=== PATIENT | male | born 1955 | race Asian ===

== ENCOUNTER 2018-11-24 06:16 | Inpatient (IN) | payer MEDICARE, MEDICAID ==
[~2018-11-24] VITALS: Ht 170.2 cm; Wt 66.2 kg
[~2018-11-24 06:16] MED LIST: *INS REG3 IJ; ALBU1.25 NEB; AMLO10TA4 PO; ENAL20TA PO; INSU3INS6 SUBCUT; IPRA0.2S49 IH; OMEP20CA10 PO; ONDA4TAB5 PO
[2018-11-24 07:17] LABS: BASOPHILS # (AUTO) 0.1 /CMM (0.0-0.2); BASOPHILS % (AUTO) 1.1 % (0.0-2.0); EOSINOPHILS % (AUTO) 2.1 % (0.0-6.0); HEMATOCRIT 23 % (39-51); HEMOGLOBIN 7.7 g/dL (13.5-17.5); LYMPHOCYTES # (AUTO) 0.9 /CMM (0.8-4.8); LYMPHOCYTES % (AUTO) 9.9 % (20.0-44.0); MEAN CORPUSCULAR HGB CONC 34 g/dl (31.0-36.0); MEAN CORPUSCULAR VOLUME 100 fL (80-96); MONOCYTES # (AUTO) 0.6 /CMM (0.1-1.30); MONOCYTES % (AUTO) 6.3 % (2.0-12.0); NEUTROPHILS # (AUTO) 7.6 /CMM (1.8-8.9); NEUTROPHILS % (AUTO) 80.6 % (43.0-81.0); PLATELET COUNT (AUTO) 302 /CMM (150-450); RED BLOOD CELL COUNT(AUTO) 2.26 MIL/uL (4.5-6.0); WHITE BLOOD COUNT (AUTO) 9.5 K/uL (4.3-11.0)
[2018-11-24 07:29] LABS: ALANINE AMINOTRANSFERASE 17 U/L (12-78); ALBUMIN 3.3 g/dL (3.4-5.0); ALKALINE PHOSPHATASE 71 U/L (46-116); ASPARTATE AMINOTRANSFERASE 22 U/L (15-37); BILIRUBIN,DIRECT 0.1 mg/dL (0.0-0.2); BILIRUBIN,TOTAL 0.2 mg/dL (0.2-1.0); CARBON DIOXIDE 31 mmol/L (21-32); CHLORIDE 97 mmol/L (98-107); GLUCOSE 196 mg/dL (74-106); POTASSIUM 3.1 mmol/L (3.5-5.1); SODIUM SERUM 138 mmol/L (136-145); TOTAL PROTEIN, SERUM 7.6 g/dL (6.4-8.2); UREA NITROGEN, BLOOD 39 mg/dL (7-18)
[2018-11-24 07:32] LABS: CREATININE 8.7 mg/dL (0.6-1.3)
[2018-11-24 12:00] VITALS: BP 160/87
[2018-11-24] MEDS ORDERED: EPOETIN ALFA (10,000 UNIT) 10,000 UNIT/ML VIAL IV ONE (12:00)
[2018-11-24] MEDS ORDERED: Z GUARD REMEDY 2 OZ OINT TP PRN (12:30)
[2018-11-24] MEDS ORDERED: ZOLPIDEM TARTRATE 5 MG TABLET PO PRN (12:30)
[2018-11-24] MEDS ORDERED: HYDROCODONE/APAP 5/325MG 1 EACH TABLET PO PRN (12:30)
[2018-11-24] MEDS ORDERED: DEXTROSE 50%-WATER 50 ML DISP.SYRIN IV PRN (12:30)
[2018-11-24] MEDS ORDERED: ONDANSETRON HCL/PF 4 MG/2 ML VIAL IVP PRN (12:30)
[2018-11-24] MEDS ORDERED: MAGNESIUM HYDROXIDE 30 ML UDC PO PRN (12:30)
[2018-11-24] MEDS ORDERED: INSULIN REGULAR, HUMAN 100 UNIT/ML 3 ML VIAL SQ PRN (12:30)
[2018-11-24] MEDS ORDERED: hydrALAZINE HCL 25 MG TABLET PO PRN (12:30)
[2018-11-24] MEDS ORDERED: *INSULIN REGULAR(HUMULIN R)HUM 100 UNIT/ML VIAL SQ PRN (12:30)
[2018-11-24] MEDS ORDERED: ACETAMINOPHEN 325 MG TABLET PO PRN (12:30)
[2018-11-24] MEDS ORDERED: MAG HYDROX/AL HYDROX/SIMETH 30 ML UDC PO PRN (12:30)
[2018-11-24] MEDS: BLOOD SUGAR DIAGNOSTIC 1 EACH STRIP VI SCH ×3 (12:30→21:25)
[2018-11-24] MEDS: ENALAPRIL MALEATE (10 MG) 10 MG TABLET PO SCH (13:00)
[2018-11-24] MEDS: ALBUTEROL HALF STRENGTH 1.25 MG/3 ML VIAL.NEB NEB SCH ×2 (13:30→19:18)
[2018-11-24 16:00] VITALS: BP 158/55
[2018-11-24 20:00] VITALS: BP 134/70
[2018-11-24] MEDS ORDERED: INSULIN GLARGINE, 100 UNIT/ML CARTRIDGE SQ SCH (22:00)
[2018-11-25 04:30] VITALS: BP 152/70
[2018-11-25 07:06] LABS: BASOPHILS # (AUTO) 0.1 /CMM (0.0-0.2); BASOPHILS % (AUTO) 0.8 % (0.0-2.0); EOSINOPHILS % (AUTO) 2.4 % (0.0-6.0); HEMATOCRIT 23 % (39-51); HEMOGLOBIN 7.9 g/dL (13.5-17.5); LYMPHOCYTES # (AUTO) 0.8 /CMM (0.8-4.8); MEAN CORPUSCULAR HGB CONC 34 g/dl (31.0-36.0); MEAN CORPUSCULAR VOLUME 100 fL (80-96); MONOCYTES # (AUTO) 0.4 /CMM (0.1-1.30); MONOCYTES % (AUTO) 4.8 % (2.0-12.0); NEUTROPHILS # (AUTO) 6.6 /CMM (1.8-8.9); PLATELET COUNT (AUTO) 295 /CMM (150-450); RED BLOOD CELL COUNT(AUTO) 2.33 MIL/uL (4.5-6.0)
[2018-11-25] MEDS: BLOOD SUGAR DIAGNOSTIC 1 EACH STRIP VI SCH (07:28)
[2018-11-25] MEDS: ALBUTEROL HALF STRENGTH 1.25 MG/3 ML VIAL.NEB NEB SCH (07:35)
[2018-11-25 07:38] LABS: THYROID STIMULATING HORMONE 154.683 uIU/mL (0.358-3.74)
[2018-11-25 07:56] LABS: CALCIUM, SERUM 7.2 mg/dL (8.5-10.1); CREATININE 6.5 mg/dL (0.6-1.3); MAGNESIUM 2.2 mg/dL (1.8-2.4); POTASSIUM 4.1 mmol/L (3.5-5.1)
[2018-11-25] MEDS ORDERED: AMLODIPINE BESYLATE 5 MG TABLET PO SCH (09:00)
[2018-11-25 10:13] VITALS: BP 165/79
[2018-11-25] MEDS: ENALAPRIL MALEATE (10 MG) 10 MG TABLET PO SCH (10:13)
== END 2018-11-25 12:45 | disposition home or self-care (01) | DRG 682 ==
LOC: ER 06:25 → TELE 10:24 → MED 11-25 09:10
PROVIDERS: ADMIT Internal Medicine; ATTEND Internal Medicine
DX: I12.0 Hypertensive chronic kidney disease with stage 5 chronic kidney disease or end stage renal disease (principal); N18.6 End stage renal disease; J98.11 Atelectasis; E11.22 Type 2 diabetes mellitus with diabetic chronic kidney disease; R13.10 Dysphagia, unspecified; D63.8 Anemia in other chronic diseases classified elsewhere; E78.5 Hyperlipidemia, unspecified; I25.10 Atherosclerotic heart disease of native coronary artery without angina pectoris; Z85.21 Personal history of malignant neoplasm of larynx; Z93.0 Tracheostomy status; Z93.1 Gastrostomy status; Z79.51 Long term (current) use of inhaled steroids; Z79.4 Long term (current) use of insulin; Z79.899 Other long term (current) drug therapy; D53.9 Nutritional anemia, unspecified; Z59.0 Homelessness; Z99.2 Dependence on renal dialysis; Z91.14 Patient's other noncompliance with medication regimen; Z83.438 Family history of other disorder of lipoprotein metabolism and other lipidemia
CPT/HCPCS: 36415; 71045-TC; 80048-TC; 80076-TC; 82962-TC; 83540-TC; 83735-TC; 84100-TC; 84443-TC; 84484-TC; 85025-TC; 85730-TC; 86706; 87081-TC; 87340; 90935-TC; 93307-TC; A6402; G0378; J0885; J1815

== ENCOUNTER 2018-12-07 15:48 | Inpatient (IN) | payer MEDICARE, MEDICAID ==
[~2018-12-07] VITALS: Ht 170.2 cm; Wt 66.2 kg
[~2018-12-07 15:48] MED LIST changes: -OMEP20CA10 PO; +OMEP20CA11 PO
--- NOTE | 2018-12-07 16:00 | NUR ---
SELF PRESENTS TO ED C/O L FOOT PAIN/CELLULITIS X 2 DAYS. PATIENT A/OX2-3, BREATHING EVEN AND UNLABORED, NO SOB NOTED, VSS. ATTACHED TO THE MONITOR. PENDING MD DAUGHERTY.
--- NOTE | 2018-12-07 16:06 | NUR ---
SEEN BY DR. FITZGERALD, INSTRUCTED TO CALL WOUND CLINIC FOR AN CLOTH WASHER OPERATOR MD FOR CONSULT D/T TRAY. FEET WOUND. PATIENT PLACED IN BED. NO DISTRESS NOTED.
[2018-12-07 16:24] LABS: BASOPHILS # (AUTO) 0.1 /CMM (0.0-0.2); BASOPHILS % (AUTO) 0.8 % (0.0-2.0); EOSINOPHILS % (AUTO) 0.8 % (0.0-6.0); HEMATOCRIT 26 % (39-51); HEMOGLOBIN 8.8 g/dL (13.5-17.5); LYMPHOCYTES # (AUTO) 0.8 /CMM (0.8-4.8); LYMPHOCYTES % (AUTO) 7.1 % (20.0-44.0); MEAN CORPUSCULAR HGB CONC 34 g/dl (31.0-36.0); MEAN CORPUSCULAR VOLUME 101 fL (80-96); MONOCYTES # (AUTO) 0.6 /CMM (0.1-1.30); MONOCYTES % (AUTO) 4.9 % (2.0-12.0); NEUTROPHILS # (AUTO) 9.8 /CMM (1.8-8.9); NEUTROPHILS % (AUTO) 86.4 % (43.0-81.0); PLATELET COUNT (AUTO) 403 /CMM (150-450); RED BLOOD CELL COUNT(AUTO) 2.58 MIL/uL (4.5-6.0); WHITE BLOOD COUNT (AUTO) 11.4 K/uL (4.3-11.0)
[2018-12-07] MEDS ORDERED: PIPERACILLIN /TAZOBACTAM 3.375 G in IV D5W 50 ML IV ONE (16:30)
[2018-12-07] MEDS ORDERED: VANCOMYCIN 1 GM in IV D5W 250 ML IV ONE (16:30)
[2018-12-07 16:34] LABS: CALCIUM, SERUM 7.5 mg/dL (8.5-10.1); CARBON DIOXIDE 34 mmol/L (21-32); CHLORIDE 93 mmol/L (98-107); GLUCOSE 213 mg/dL (74-106); POTASSIUM 3.3 mmol/L (3.5-5.1); SODIUM SERUM 135 mmol/L (136-145); UREA NITROGEN, BLOOD 31 mg/dL (7-18)
[2018-12-07 16:36] LABS: CREATININE 7.9 mg/dL (0.6-1.3)
--- NOTE | 2018-12-07 16:36 | NUR ---
CREAT=7.9
--- NOTE | 2018-12-07 16:42 | NUR ---
CALLED [facility] CREDIT HISTORIAN TALIA PAGEKylie
--- NOTE | 2018-12-07 16:43 | NUR ---
ADKED NURSING SUP FOR MEDSURG BED
[2018-12-07 16:48] LABS: ALANINE AMINOTRANSFERASE 15 U/L (12-78); ALBUMIN 3.1 g/dL (3.4-5.0); ALKALINE PHOSPHATASE 91 U/L (46-116); ASPARTATE AMINOTRANSFERASE 19 U/L (15-37); BILIRUBIN,DIRECT 0.1 mg/dL (0.0-0.2); BILIRUBIN,TOTAL 0.3 mg/dL (0.2-1.0)
--- NOTE | 2018-12-07 17:01 | NUR ---
304-1 NIKKIE MELGAR, INFECTED ULCER
--- NOTE | 2018-12-07 17:06 | NUR ---
REPORT TO JULIA CARTAGENA. AWAITING TRANSFER TO FLOOR.
[2018-12-07] MEDS ORDERED: MAGNESIUM HYDROXIDE 30 ML UDC PO PRN (17:30)
[2018-12-07] MEDS ORDERED: MORPHINE SULFATE INJ 2 MG/ML DISP.SYRIN IV PRN (17:30)
[2018-12-07] MEDS ORDERED: ONDANSETRON HCL/PF 4 MG/2 ML VIAL IVP PRN (17:30)
[2018-12-07] MEDS ORDERED: ZOLPIDEM TARTRATE 5 MG TABLET PO PRN (17:30)
[2018-12-07] MEDS ORDERED: HYDROCODONE/APAP 5/325MG 1 EACH TABLET PO PRN (17:30)
[2018-12-07] MEDS ORDERED: Z GUARD REMEDY 2 OZ OINT TP PRN (17:30)
[2018-12-07] MEDS ORDERED: MAG HYDROX/AL HYDROX/SIMETH 30 ML UDC PO PRN (17:30)
[2018-12-07] MEDS ORDERED: ACETAMINOPHEN 325 MG TABLET PO PRN (17:30)
--- NOTE | 2018-12-07 18:06 | NUR ---
PATIENT TRANSFERRED TO MS FLOOR 304-1, PATIENT IN STABLE CONDITION. VSS. PATIENT A/OX3, NO DISTRESS NOTED.
[2018-12-07] MEDS ORDERED: FEE PK DOSING 1 MIN EA MC ONE (18:10)
--- NOTE | 2018-12-07 19:00 | NUR ---
BULB FILLER OPENING NOTES Received patient A/O x3, nonverbal, awake on semi-Crouch's on bed. On RA, no SOB/respiratory distress noted. No complaints of pain/discomfort made. Photos re-taken and documented. Wound care done. Call light within easy reach. Will continue to monitor accordingly.
--- NOTE | 2018-12-07 19:05 | NUR ---
EDITORIAL INTERN NOTES On tele monitor with SR noted.
--- NOTE | 2018-12-07 19:50 | NUR ---
LIFE EDUCATOR NOTES Received call from labs critical lab crea 3.5. Relayed to RUTHIE Pyle. Patient remained stable, VS WNL.
[2018-12-07 20:00] VITALS: BP 165/69
[2018-12-07 20:37] VITALS: BP 165/69
[2018-12-07 23:43] VITALS: BP 134/73
[2018-12-08] VITALS: BP 134/73
[2018-12-08] MEDS: PIPERACILLIN /TAZOBACTAM 2.25 G in IV D5W 50 ML IV SCH ×3 (00:40→17:07)
[2018-12-08 04:00] VITALS: BP 143/70
[2018-12-08 04:51] VITALS: BP 160/71
--- NOTE | 2018-12-08 06:50 | NUR ---
CHEMIC MANGLER CLOSING NOTES Patient asleep, easily awaken, on semi-Rcouch's position on bed. On RA, no SOB/respiratory distress noted. No complaints of pain or discomfort noted. All due meds given, no ASE noted. All nursing needs attended. Call light within easy reach. Endorsed to the next shift. Addendum: 12/08/18 at 0652 by ANGELINA NUGENT RN Patient on tele monitor with NSR noted.
[2018-12-08 07:27] LABS: BASOPHILS # (AUTO) 0.1 /CMM (0.0-0.2); BASOPHILS % (AUTO) 0.9 % (0.0-2.0); EOSINOPHILS % (AUTO) 1.3 % (0.0-6.0); HEMATOCRIT 25 % (39-51); HEMOGLOBIN 8.1 g/dL (13.5-17.5); LYMPHOCYTES % (AUTO) 8.4 % (20.0-44.0); MEAN CORPUSCULAR HGB CONC 33 g/dl (31.0-36.0); MEAN CORPUSCULAR VOLUME 101 fL (80-96); MONOCYTES # (AUTO) 0.5 /CMM (0.1-1.30); MONOCYTES % (AUTO) 4.3 % (2.0-12.0); NEUTROPHILS # (AUTO) 9.8 /CMM (1.8-8.9); NEUTROPHILS % (AUTO) 85.1 % (43.0-81.0); PLATELET COUNT (AUTO) 384 /CMM (150-450); RED BLOOD CELL COUNT(AUTO) 2.44 MIL/uL (4.5-6.0); WHITE BLOOD COUNT (AUTO) 11.6 K/uL (4.3-11.0)
[2018-12-08 07:41] LABS: CALCIUM, SERUM 6.7 mg/dL (8.5-10.1); MAGNESIUM 1.9 mg/dL (1.8-2.4); PHOSPHORUS 3.9 mg/dL (2.5-4.9); POTASSIUM 3.9 mmol/L (3.5-5.1)
[2018-12-08 07:42] LABS: CREATININE 8.7 mg/dL (0.6-1.3)
[2018-12-08 08:00] VITALS: BP 143/69
--- NOTE | 2018-12-08 08:00 | NUR ---
RN NOTES PATIENT IN BED RESTING NO SOB OR ACUTE DISTRESS NOTED. PATIENT WITH TRACH STOMA OPEN TO AIR, PATIENT DOES NOT WANT IT COVERED. PATIENT ALSO WITH G-TUBE STOMA. PERIPHERAL IV INTACT PATENT. NOTED WITH CREAT. 8.7 MD AWARE WAITING FOR NEPHROLOGY AND HD. PATIENT WITH BILATERAL FEET WOUNDS WAITING FOR PODIATRY CONSULT. PATIENT ALERT, ORIENTED X3. WILL CONTINUE TO MONITOR.
--- NOTE | 2018-12-08 10:09 | NUR ---
WOUND CARE CONSULT: PT PRESENTS WITH BILATERAL FOOT WOUNDS, PRESENT ON ADMISSION. DR ESCAMILLA EXAMINING PT. DEFER TO DPM FOR LOWER EXTREMITIES. RECOMMENDATIONS MADE FOR SKIN PROTECTION. DISCUSSED WITH NURSING STAFF. WILL SEE PRN. PT IS CONTINENT AND ABLE TO ASSIST WITH TURNING/REPOSITIONING IN BED. Addendum: 12/08/18 at 1011 by BLANCHE MAK WNDNU Amended: Links added.
--- NOTE | 2018-12-08 14:49 | NUR ---
Social service consult requested by LONI Briggs for homelessness. Pt. is a 63 year old German male who was admitted to [facility] for infected ulcer.SW met with pt. bedside. Pt. was laying in bed. Pt. appeared lethargic. Pt. is cooperative and polite with SW during the assessment. Pt. is alert and oriented x 3. Pt. has a history of tracheostomy, dysphagia s/p G tube, Hx laryngeal CA. Pt. is on dialysis and has been non complaint with his dialysis. Pt. was residing at [facility] in the past, however, left the facility a few weeks ago and has been living in his car. Pt. receives $700 in SSI per month. Pt. is willing to go to a SNF placement. property site manager Staci Reyes is aware of pt's disposition and will be looking for a SNF.
--- NOTE | 2018-12-08 15:00 | NUR ---
MS RN NOTES PER DR. MELISSA CARRILLO TOMORROW AWARE OF CREAT. OF 8.7.
[2018-12-08 16:00] VITALS: BP 178/81
--- NOTE | 2018-12-08 18:23 | NUR ---
MS RN NOTES PATIENT IN BED RESTING NO SOB OR ACUTE DISTRESS NOTED. PATIENT ALERT, ORIENTED X3. ALL DUE MEDICATIONS ADMINISTERED. ALL NEEDS MET. NO ACUTE CHANGES NOTED DURING SHIFT. PERIPHERAL IV INTACT PAPNET. WILL ENDORSE TO PM SHIFT BARBIE.
--- NOTE | 2018-12-08 19:30 | NUR ---
RN NOTES RECEIVED PT. AWAKE ON BED, A/OX3, NON-VERBAL, STOMA (S/P TRACH), DENIES PAIN, NO SOB, CALL LIGHT WITHIN REACH, SIDERAILSUPX2, CONTINUE TO MONITOR
[2018-12-08 20:09] VITALS: BP 147/83
[2018-12-09] MEDS: PIPERACILLIN /TAZOBACTAM 2.25 G in IV D5W 50 ML IV SCH ×3 (00:27→17:15)
--- NOTE | 2018-12-09 01:39 | NUR ---
RN NOTES READ PATIENT H&P , PATIENT IS INSULIN DEPENDENT, GOT AN ACCU CHECK ORDER FROM ROSHAN MARTINEZ, ORDER NOTED AND CARRIED OUT
[2018-12-09] MEDS ORDERED: DEXTROSE 50%-WATER 50 ML DISP.SYRIN IV PRN (02:00)
--- NOTE | 2018-12-09 06:35 | NUR ---
RN NOTES AWAKE, DENIES PAIN, NO SOB, MORNING CARE RENDERED, CALL LIGHT WITHIN REACH, SIDERAILSUPX2, PT. NEEDS ATTENDED
[2018-12-09] MEDS: BLOOD SUGAR DIAGNOSTIC 1 EACH STRIP IN SCH ×4 (06:36→21:29)
[2018-12-09 07:37] LABS: BASOPHILS # (AUTO) 0.1 /CMM (0.0-0.2); BASOPHILS % (AUTO) 0.5 % (0.0-2.0); EOSINOPHILS % (AUTO) 1.9 % (0.0-6.0); HEMATOCRIT 23 % (39-51); HEMOGLOBIN 7.8 g/dL (13.5-17.5); LYMPHOCYTES # (AUTO) 0.8 /CMM (0.8-4.8); LYMPHOCYTES % (AUTO) 8.4 % (20.0-44.0); MEAN CORPUSCULAR HGB CONC 35 g/dl (31.0-36.0); MEAN CORPUSCULAR VOLUME 100 fL (80-96); MONOCYTES # (AUTO) 0.5 /CMM (0.1-1.30); MONOCYTES % (AUTO) 5.4 % (2.0-12.0); NEUTROPHILS # (AUTO) 8.3 /CMM (1.8-8.9); NEUTROPHILS % (AUTO) 83.8 % (43.0-81.0); PLATELET COUNT (AUTO) 360 /CMM (150-450); RED BLOOD CELL COUNT(AUTO) 2.24 MIL/uL (4.5-6.0); WHITE BLOOD COUNT (AUTO) 9.9 K/uL (4.3-11.0)
[2018-12-09 07:57] LABS: CALCIUM, SERUM 6.7 mg/dL (8.5-10.1); MAGNESIUM 1.9 mg/dL (1.8-2.4); PHOSPHORUS 4.1 mg/dL (2.5-4.9); POTASSIUM 3.5 mmol/L (3.5-5.1)
[2018-12-09 07:59] LABS: CREATININE 9.4 mg/dL (0.6-1.3)
[2018-12-09 08:00] VITALS: BP 163/73
--- NOTE | 2018-12-09 08:00 | NUR ---
MS RN NOTES: RECEIVED RESIDENT ASLEEP IN BED, AROUSABLE. ALERT AND ORIENTED X4. NO SIGNS OF ACUTE DISTRESS AT THIS TIME. TRACH STOMA AND GASTROSTOMY STOMA SITE OPEN, PATIENT REFUSED TO HAVE IT COVERED. RIGHT AC GAUGE #20 INTACT AND PATENT. RESIDENT NON VERBAL BUT ABLE TO MAKE NEEDS KNOWN THROUGH WRITTEN COMMUNICATION, GESTURES AND BODY LANGUAGE. CALL LIGHT WITHIN REACH. NEEDS ATTENDED.
[2018-12-09] MEDS: INSULIN REGULAR, HUMAN 100 UNIT/ML 3 ML VIAL SQ PRN ×2 (11:37→21:33)
[2018-12-09 16:00] VITALS: BP 155/81
--- NOTE | 2018-12-09 18:50 | NUR ---
MS RN NOTES: PATIENT ALERT AND ORIENTED X4. DENIES ANY C/O PAIN NOR DISCOMFORT. ALL DUE MEDS GIVEN KARELY WELL W/O ASE NOTED. RT AC #20 INTACT AND PATENT WITHOUT S/S OF COMPLICATIONS. REMAINS STABLE AT THIS TIME. CONTINENT OF B&B. CALL LIGHT WITHIN REACH. ABLE TO MAKE NEEDS KNOWN. SCHEDULED FOR HD TODAY, AWAITING FOR HD TX, ENDORSED TO ONCOMING SHIFT.
--- NOTE | 2018-12-09 19:00 | NUR ---
RN medsurg opening notes Pt is alert and oriented X3. Pt is non verbal and able to make needs known. Pt is sitting in bed comfortably. Respiration is normal. No SOB. No nausea or vomiting. Trach stoma is open and Pt refused to have it covered. IV sites on R AC #20g is intact, patent and SL. Safety precautions is maintained. Bed at low position, brakes on, side rails upX2 and call light is within reach. Instructed to call. Will continue to monitor and assist needs.
[2018-12-09 19:58] VITALS: BP 154/73
--- NOTE | 2018-12-09 21:36 | NUR ---
RN Medsunaya notes Pt is having dialysis. Dialysis nurse name Breanna.
--- NOTE | 2018-12-10 00:15 | NUR ---
OSIEL ayoubsurgiancarlo notes Dialysis done. 0 L output. Pt tolerated well. No adverse reaction. Will continue to monitor.
[2018-12-10] MEDS: VANCOMYCIN 500 MG in IV D5W 100 ML IV PRN (00:19)
[2018-12-10] MEDS: PIPERACILLIN /TAZOBACTAM 2.25 G in IV D5W 50 ML IV SCH ×3 (01:29→16:39)
--- NOTE | 2018-12-10 06:50 | NUR ---
RN medsurg closing notes Pt is alert and oriented x3. Pt is non verbal and able to make needs known. Pt is resting in bed comfortably. Respiration is normal. NO SOB. No S/S of distress noted. Routine meds given and all needs met. Pt tolerated well. VS is stable. IV sites is intact and patent. Pt refused to covered the trach stoma. Safety precautions is maintained. Bed at low position and call light is within reach. Will endorse to morning nurse.
--- NOTE | 2018-12-10 07:25 | NUR ---
MS RN OPENING NOTES RECEIVED PT IN BED, AWAKE, A/O X3. NONVERBAL, CAN RESPOND WITH NON VERBAL CUES AND GESTURES. PT DENIES ANY PAIN OR DISCOMFORT. PT DENIES ANY QUESTIONS AND CONCERNS. PT GESTURED "I DON'T KNOW" WHEN ASKED WITH HIS GOAL FOR TODAY. PIV TO RAC G20, FLUSHED WITH NS, INTACT AND OPERATIONAL. PT KEPT COMFORTABLE. CALL LIGHT AND FLUID KEPT WITHIN REACH. PT'S BED IN LOWEST, LOCKED POSITION WITH SR X2. WILL CONTINUE PLAN OF CARE.
[2018-12-10] MEDS: BLOOD SUGAR DIAGNOSTIC 1 EACH STRIP IN SCH ×4 (07:35→22:16)
[2018-12-10 07:57] VITALS: BP 141/72
[2018-12-10 08:03] LABS: CALCIUM, SERUM 7.5 mg/dL (8.5-10.1); CREATININE 6.4 mg/dL (0.6-1.3); MAGNESIUM 1.9 mg/dL (1.8-2.4); PHOSPHORUS 3.1 mg/dL (2.5-4.9); POTASSIUM 3.5 mmol/L (3.5-5.1)
[2018-12-10 08:05] LABS: BASOPHILS # (AUTO) 0.1 /CMM (0.0-0.2); BASOPHILS % (AUTO) 0.9 % (0.0-2.0); EOSINOPHILS % (AUTO) 2.9 % (0.0-6.0); HEMATOCRIT 23 % (39-51); HEMOGLOBIN 7.7 g/dL (13.5-17.5); LYMPHOCYTES # (AUTO) 0.7 /CMM (0.8-4.8); LYMPHOCYTES % (AUTO) 8.6 % (20.0-44.0); MEAN CORPUSCULAR HGB CONC 34 g/dl (31.0-36.0); MEAN CORPUSCULAR VOLUME 101 fL (80-96); MONOCYTES # (AUTO) 0.4 /CMM (0.1-1.30); MONOCYTES % (AUTO) 5.1 % (2.0-12.0); NEUTROPHILS # (AUTO) 7.2 /CMM (1.8-8.9); NEUTROPHILS % (AUTO) 82.5 % (43.0-81.0); PLATELET COUNT (AUTO) 388 /CMM (150-450); RED BLOOD CELL COUNT(AUTO) 2.26 MIL/uL (4.5-6.0); WHITE BLOOD COUNT (AUTO) 8.7 K/uL (4.3-11.0)
--- NOTE | 2018-12-10 09:19 | NUR ---
MS RN NOTES SEEN AND EVALUATED BY SK EARLIER THIS MORNING, WITH NO NEW ORDERS NOTED. PT AWARE. WILL CONTINUE TO MONITOR.
[2018-12-10] MEDS: INSULIN REGULAR, HUMAN 100 UNIT/ML 3 ML VIAL SQ PRN ×3 (11:43→22:17)
[2018-12-10 16:00] VITALS: BP 186/91
[2018-12-10] MEDS: hydrALAZINE HCL 25 MG TABLET PO PRN (17:06)
--- NOTE | 2018-12-10 18:52 | NUR ---
MS RN CLOSING NOTES PT REMAINS IN BED, AWAKE, A/O X3. NONVERBAL, MOUTHS WORDS AND HAND GESTURES. PT DENIES ANY PAIN OR DISCOMFORT. PT HAS STOMA ON THE FRONT NECK S/P TRACH; PT REFUSE TO COVER IT.PIV TO RAC G20, FLUSHED WITH NS, INTACT AND OPERATIONAL. PT KEPT COMFORTABLE. CALL LIGHT AND FLUID KEPT WITHIN REACH. PT'S BED IN LOWEST, LOCKED POSITION WITH SR X2. WILL ENDORSE TO INCOMING NIGHT NURSE.
--- NOTE | 2018-12-10 19:20 | NUR ---
RN INITIAL NOTES: RECEIVED REPORT FORM ANDREW CARTAGENA. PT IN BED, AWAKE, NON VERBAL, ABLE TO MOUTH WORDS, ABLE TO MAKE HIS NEEDS KNOWN. S/P HD TODAY 12/10 WITH NO OUTPUT JUST CLEANING. CHRISTIAN HD ACCESS COVERED WITH DRESSING C/D/I, NO ACTIVE BLEEDING NOTED. IV ACCESS PATENT AND FLUSHING WELL, ON HL. URINAL WITHIN REACH. SAFETY PRECAUTIONS FOR FALL INITIATED, CALL LIGHT IN REACH, WILL CONTINUE MONITORING PT.
[2018-12-10 20:00] VITALS: BP 147/78
--- NOTE | 2018-12-10 21:00 | NUR ---
RN NOTES: REQUESTED FOR TUNA SAND WHICH, ATE 100%
--- NOTE | 2018-12-10 22:17 | NUR ---
ACCU CHECK 190: BLOOD SUGAR 190, 3UNITS OF INSULIN GIVEN PER SLIDING SCALE
[2018-12-11] VITALS (9 sets, daily range): BP systolic 143–198; BP diastolic 75–100
[2018-12-11] MEDS: PIPERACILLIN /TAZOBACTAM 2.25 G in IV D5W 50 ML IV SCH ×3 (00:49→16:02)
[2018-12-11] MEDS: BLOOD SUGAR DIAGNOSTIC 1 EACH STRIP IN SCH ×4 (05:44→21:25)
[2018-12-11] MEDS: INSULIN REGULAR, HUMAN 100 UNIT/ML 3 ML VIAL SQ PRN ×3 (05:46→21:22)
--- NOTE | 2018-12-11 05:46 | NUR ---
accu check 140: blood sugar 140, 2units of insulin given per sliding scale, pt requesting to eat and have some juice.
--- NOTE | 2018-12-11 06:50 | NUR ---
rn closing notes: Pt in bed, awake, remains non verbal, denies any pain or discomfort at this time. IV access remains patent and flushing well, on hl. chris hd access remains covered with dressing, c/d/i. Wound dressing remains c/d/i. Pt for HD in am. VS remains stable, needs attended. Safety precautions for fall remains engaged, call light in reach, will endorse to day rn for continuity of care.
[2018-12-11 07:16] LABS: BASOPHILS # (AUTO) 0.1 /CMM (0.0-0.2); BASOPHILS % (AUTO) 0.8 % (0.0-2.0); EOSINOPHILS % (AUTO) 3.5 % (0.0-6.0); HEMATOCRIT 21 % (39-51); HEMOGLOBIN 7.1 g/dL (13.5-17.5); LYMPHOCYTES # (AUTO) 0.8 /CMM (0.8-4.8); LYMPHOCYTES % (AUTO) 10.3 % (20.0-44.0); MEAN CORPUSCULAR HGB CONC 34 g/dl (31.0-36.0); MEAN CORPUSCULAR VOLUME 101 fL (80-96); MONOCYTES # (AUTO) 0.4 /CMM (0.1-1.30); MONOCYTES % (AUTO) 4.6 % (2.0-12.0); NEUTROPHILS # (AUTO) 6.5 /CMM (1.8-8.9); NEUTROPHILS % (AUTO) 80.8 % (43.0-81.0); PLATELET COUNT (AUTO) 366 /CMM (150-450); RED BLOOD CELL COUNT(AUTO) 2.08 MIL/uL (4.5-6.0); WHITE BLOOD COUNT (AUTO) 8.1 K/uL (4.3-11.0)
--- NOTE | 2018-12-11 07:19 | NUR ---
MS/RN OPENING NOTE PATIENT IN BED IN STABLE CONDITION. A/O X 3, LUXEMBOURGISH SPEAKING. NO SIGNS OF ACUTE DISTRESS. NO COMPLAIN OF PAIN OR DISCOMFORT. ALL NEEDS ATTENDED TO. CALL LIGHT WITHIN REACH. WILL CONTINUE TO MONITOR TO ENSURE SAFETY.
[2018-12-11 07:33] LABS: MAGNESIUM 1.9 mg/dL (1.8-2.4); POTASSIUM 3.7 mmol/L (3.5-5.1)
[2018-12-11 07:35] LABS: CREATININE 7.6 mg/dL (0.6-1.3)
--- NOTE | 2018-12-11 07:53 | NUR ---
MS/RN RECEIVED CALL FROM LAB AND COURY NOTIFIED PATIENT NOTED WITH CRITICAL HIGH CREATININE OF 7.4, NOTIFIED, PATIENT HAS SCHEDULE DIALYSIS TODAY.
--- NOTE | 2018-12-11 09:12 | NUR ---
MS/RN SPOKE WITH NEO FROM PHARM AND VERIFY THE VANCO TROUGH DRAWN TODAY AT 0600 WILL BE COUNTED RANDOM VANCO TROUGH PRIOR TO DIALYSIS, SINCE PATIENT SCHEDULE FOR DIALYSIS TODAY. PER NEO NO NEED TO ORDER ANOTHER VANCO TROUGH THE 0600 VANCO TROUGH ON 12/11/18 IS RANDOM VANCO TROUGH PRIOR TO HD.
[2018-12-11] MEDS ORDERED: EPOETIN ALFA (10,000 UNIT) 10,000 UNIT/ML VIAL IV ONE (12:00)
--- NOTE | 2018-12-11 13:45 | NUR ---
MS/RN SPOKE WITH KELECHI FROM PHARM AND VERIFY WHICH VANCO IV ORDER TO GIVE THE SCHEDULE VANCO 250MG AT 1700 OR PRN ORDER POST HD VANCO 500 SINCE PATIENT IS HAVING DIALYSIS AT THE MOMENT. PER KELECHI MCQUEEN TO GIVE SCHEDULE VANCO 250MG IVPB AT 1700.
[2018-12-11] MEDS: hydrALAZINE HCL 25 MG TABLET PO PRN (15:57)
--- NOTE | 2018-12-11 16:46 | NUR ---
MS/RN PATIENT REFUSED TREATMENT TO RIGHT LATERAL FOOT, LEFT MEDIAL FOOT, AND RIGHT PLANTAR FOOT. OFFERED X 3 WITH RISKS AND BENEFITS EXPLAINED. CONTINUE TO REFUSE WITH "NO HEAD NOD GESTURE" AND WOULDN'T LET THE NURSE TOUCH THE DRESSING SITE.
[2018-12-11] MEDS ORDERED: VANCOMYCIN 1 GM in IV D5W 250 ML IV ONE (17:00)
--- NOTE | 2018-12-11 18:09 | NUR ---
MS/RN CLOSING NOTE PATIENT IN BED IN STALE CONDITION. A/O X 2-3, ANSWERS YES OR NO QUESTIONS WITH HEAD NOD. NO SIGNS OF ACUTE DISTRESS. NO COMPLAIN OF PAIN OR DISCOMFORT. S/P HYDRALAZINE 25MG PO BP NOTED 108/68. STILL CONTINUE TO REFUSE WOUND TREATMENT. ALL NEEDS ATTENDED TO AT THIS TIME. CALL LIGHT WITHIN REACH. WILL ENDORSE TO NEXT SHIFT FOR CONTINUITY OF CARE.
--- NOTE | 2018-12-11 20:00 | NUR ---
MS RN NOTES RECEIVED PATIENT AWAKE IN BED WITH NO DISTRESS NOTED. CALL LIGHT WITHIN REACH. PERIPHERAL LINE INTACT AND PATENT. CHRISTIAN AV SHUNT INTACT WITH (+) BRUIT AND THRILL. NO SWELLING, REDNESS, OR BLEEDING NOTED. BED IN LOW LOCK SETTING. ROOM FREE OF CLUTTER AND BELONGINGS KEPT NEAR BEDSIDE. WILL CONTINUE TO MONITOR.
--- NOTE | 2018-12-11 21:45 | NUR ---
RECEIVED PATIENT FROM [facility]. PATIENT AO X 2-3. ABLE TO MAKE NEEDS KNOWN. WILL CONTINUE TO MONITOR.
[2018-12-12] MEDS: PIPERACILLIN /TAZOBACTAM 2.25 G in IV D5W 50 ML IV SCH ×3 (01:13→16:17)
--- NOTE | 2018-12-12 06:00 | NUR ---
PATIENT ASLEEP, EASILY AROUSABLE. RESPIRATIONS EVEN. NO SIGNS OF PAIN NOTED. NO SYMPTOMS OF HYPER/HYPOGLYCEMIA. DUE MEDS GIVEN WITH NO ASE NOTED. NEEDS ATTENDED. KEPT CLEAN AND DRY. SAFETY PRECAUTIONS AND COMFORT MEASURES IN PLACE. WILL GIVE REPORT TO DAY SHIFT FOR CONTINUITY OF CARE.
[2018-12-12] MEDS: BLOOD SUGAR DIAGNOSTIC 1 EACH STRIP IN SCH ×4 (06:39→21:41)
[2018-12-12 06:54] LABS: BASOPHILS # (AUTO) 0.1 /CMM (0.0-0.2); BASOPHILS % (AUTO) 1.1 % (0.0-2.0); HEMATOCRIT 28 % (39-51); HEMOGLOBIN 9.8 g/dL (13.5-17.5); LYMPHOCYTES % (AUTO) 11.5 % (20.0-44.0); MEAN CORPUSCULAR HGB CONC 35 g/dl (31.0-36.0); MEAN CORPUSCULAR VOLUME 97 fL (80-96); MONOCYTES # (AUTO) 0.5 /CMM (0.1-1.30); MONOCYTES % (AUTO) 5.3 % (2.0-12.0); NEUTROPHILS # (AUTO) 6.9 /CMM (1.8-8.9); NEUTROPHILS % (AUTO) 79.1 % (43.0-81.0); PLATELET COUNT (AUTO) 344 /CMM (150-450); RED BLOOD CELL COUNT(AUTO) 2.93 MIL/uL (4.5-6.0); WHITE BLOOD COUNT (AUTO) 8.7 K/uL (4.3-11.0)
[2018-12-12 06:58] LABS: CALCIUM, SERUM 8.7 mg/dL (8.5-10.1); MAGNESIUM 1.9 mg/dL (1.8-2.4); PHOSPHORUS 3.4 mg/dL (2.5-4.9); POTASSIUM 3.9 mmol/L (3.5-5.1)
--- NOTE | 2018-12-12 07:22 | NUR ---
RN OPENING NOTE PT WAS RECEIVED IN BED AT LOWEST AND LOCKED POSITION WITH SIDE RAILS UPX2, A/O 2-3 MOUTH WORDS, BREATHING EVEN AND UNLABORED ON RA, NO CURRENT COMPLAINTS OR SIGN OF ANY DISTRESS OR PAIN AT THIS TIME, IV IS PATENT AND INTACT, NOTED TO HAVE CHRISTIAN AV SHUNT AND RECEIVED HD YESTERDAY, NOTED TO HAVE FOOT WITH S/P DEBRIDEMENT ON 12/08, AWAITING TO COLLECT STOOL, SAFETY PRECAUTIONS IN PLACE, CALL LIGHT WITHIN REACH, WILL MONITOR ACCORDINGLY
[2018-12-12 08:00] VITALS: BP 156/76
[2018-12-12] MEDS: AMLODIPINE BESYLATE 5 MG TABLET PO SCH (08:42)
[2018-12-12] MEDS: INSULIN REGULAR, HUMAN 100 UNIT/ML 3 ML VIAL SQ PRN ×3 (11:35→21:39)
--- NOTE | 2018-12-12 12:30 | NUR ---
RN NOTE WOUND CARE DONE AT THIS TIME
[2018-12-12 16:00] VITALS: BP 166/65
--- NOTE | 2018-12-12 18:38 | NUR ---
RN CLOSING NOTE PT IN BED AT LOWEST AND LOCKED POSITION WITH SIDE RAILS UPX2, A/O X2-2 BREATHING EVEN AND UNLABORED ON WITHNO CURRENT SIGNS OF ANY DISTRESS OR PAIN AT THIS TIME, IV IS PATENT AND INTACT, RESTING COMFORTABLY IN BED, SAFETY PRECAUTIONS IN PLACE, CALL LIGHT WITHIN REACH, ALL NEEDS ATTENDED TO, WILL ENDORSE TO PRESSURE TANK OPERATOR RN FOR BARBIE
--- NOTE | 2018-12-12 19:30 | NUR ---
RECEIVED PATIENT IN BED AWAKE. AO X 2-3, ABLE TO MAKE NEEDS KNOWN; MOUTHS WORDS. NO ACUTE DISTRESS NOTED. DENIES ANY PAIN AT THIS TIME. IV SITE PATENT, INTACT; FLUSHED. BILATERAL FOOT DRESSINGS INTACT. SAFETY REMINDERS GIVEN. ON LOW BED WITH BILATERAL UPPER SIDE RAILS UP. CALL [place] WITHIN EASY REACH. WILL CONTINUE TO MONITOR.
[2018-12-12 20:00] VITALS: BP 165/80
[2018-12-12 21:00] VITALS: BP 149/73
[2018-12-13] MEDS: PIPERACILLIN /TAZOBACTAM 2.25 G in IV D5W 50 ML IV SCH ×3 (01:47→17:28)
--- NOTE | 2018-12-13 06:00 | NUR ---
PATIENT ASLEEP, EASILY AROUSABLE. RESPIRATIONS EVEN. NO SIGNS OF PAIN NOTED. NO SYMPTOMS OF HYPER/HYPOGLYCEMIA. DUE MED GIVEN WITH NO ASE NOTED. NEEDS ATTENDED. KEPT CLEAN AND DRY. SAFETY PRECAUTIONS AND COMFORT MEASURES IN PLACE. WILL GIVE REPORT TO DAY SHIFT FOR CONTINUITY OF CARE.
[2018-12-13] MEDS: BLOOD SUGAR DIAGNOSTIC 1 EACH STRIP IN SCH ×4 (06:41→23:24)
[2018-12-13] MEDS: INSULIN REGULAR, HUMAN 100 UNIT/ML 3 ML VIAL SQ PRN ×4 (06:43→23:28)
[2018-12-13 07:06] LABS: CALCIUM, SERUM 8.3 mg/dL (8.5-10.1); POTASSIUM 4.3 mmol/L (3.5-5.1)
[2018-12-13 07:32] LABS: CREATININE 7.7 mg/dL (0.6-1.3)
[2018-12-13 08:00] VITALS: BP 157/83
--- NOTE | 2018-12-13 08:00 | NUR ---
MS RN NOTES PATIENT ALERT, ORIENTED X3. PERIPHERAL IV INTACT PATENT. BED IN LOW LOCKED POSITION. CALL LIGHT WITHIN REACH. WAITING FOR HD TODAY. WILL CONTINUE TO MONITOR.
[2018-12-13] MEDS: AMLODIPINE BESYLATE 5 MG TABLET PO SCH (09:06)
[2018-12-13] MEDS ORDERED: INSU100V28 SQ (09:55)
[2018-12-13] MEDS ORDERED: AMLO5TAB9 PO (09:55)
[2018-12-13] MEDS ORDERED: HYDR-4076 PO (09:55)
[2018-12-13] MEDS ORDERED: CLIN300C11 PO (09:55)
--- NOTE | 2018-12-13 15:00 | NUR ---
MS RN NOTES PATIENT WITH BED AT [facility] AWAITING FOR HD BEFORE TRANSFER.
[2018-12-13 16:00] VITALS: BP 172/90
--- NOTE | 2018-12-13 19:19 | NUR ---
MS RN NOTES PATIENT IN BED ALERT, ORIENTED X3. CURRENTLY ON HD. TOLERATING WELL. PATIENT TO BE DISCHARGED AFTER HD. NO ACUTE CHANGED NOTED DURING SHIFT. PATIENT AWARE OF DISCHARGE. ENDORSED CARE TO PM SHIFT.
--- NOTE | 2018-12-13 19:30 | NUR ---
MS/RN OPENING NOTES PT RECEIVED AWAKE, RESTING COMFORTABLY IN BED. A/OX3. NON VERBAL BUT ABLE TO MOUTH WORDS, ANSWER YES/NO QUESTIONS AND WRITE HIS NEEDS DOWN ON PAPER. ON ROOM AIR, BREATHING EVEN AND UNLABORED. IV TO RIGHT WRIST PATENT AND INTACT. CHRISTIAN AV SHUNT, HD ONGOING AT THIS TIME. PLAN TO DC TONIGHT TO [facility] AFTER HD. AMBULANCE ON WILL CALL. PT AWARE AND AGREES WITH PLAN OF CARE. NO NEEDS EXPRESSED AT THIS TIME. BED IN LOW/LOCKED POSITION WITH CALL LIGHT IN REACH, HOB ELEVATED, BILAT. UPPER SIDE RAILS IN PLACE. WILL CONTINUE TO MONITOR
[2018-12-13 19:50] VITALS: BP 167/85
[2018-12-13 20:00] VITALS: BP 167/85
--- NOTE | 2018-12-13 20:40 | NUR ---
MS/RN NOTES CALLED [facility]. SPOKE TO BAL NURSING INDUSTRIAL ENGINEERING TECHNICIAN TO GIVE REPORT. MADE AWARE THAT PT IS ONGOING HD AND AMBULANCE IS ON WILL CALL. WILL KEEP HER UPDATED.
--- NOTE | 2018-12-13 21:26 | NUR ---
MS/RN NOTES HD ENDED, 1200 CC OUT. PER HD NURSE, BP 103/56, HR 82
--- NOTE | 2018-12-13 21:30 | NUR ---
MS/RN NOTES AMBULANCE CALLED TO [facility] PT. ETA 1 HOUR. BAL MADE AWARE
[2018-12-13 21:45] VITALS: BP 152/75
--- NOTE | 2018-12-13 22:02 | NUR ---
MS/RN NOTES DISCHARGE PAPERWORK PRINTED AND REVIEWED WITH PT. PT REFUSING TO SIGN DC PAPERWORK AND DOES NOT WANT TO BE DISCHARGED. WANTS TO STAY THE NIGHT AND LEAVE TOMORROW. NOTIFIED TOBY MARTINEZ NP THAT PT IS NOW REFUSING TO GO TO SNF. HE HAS HIS CAR IN [facility] [address] [place] AND WANTS TO DRIVE HIMSELF TO THE SNF. HE DOES NOT WANT TO GO VIA AMBULANCE. PT AWARE THAT THE SNF CAN TRY TO ARRANGE TO HAVE HIS CAR PICKED UP BUT PT STILL STRONGLY REFUSING.
--- NOTE | 2018-12-13 22:15 | NUR ---
MS/RN NOTES SPOKE TO BAL FROM SNF. INFORMED HER THAT PT WANTS TO DRIVE HIS CAR TO THE SNF. THEY CANNOT ACCEPT PT'S UNLESS PT ARRIVES VIA AMBULANCE. SHE AGREED THAT THEY CAN ARRANGE SOMETHING TO HAVE HIS CAR PICKED UP AND BROUGHT TO THE SNF. INFORMED PT MULTIPLE TIMES ON HOW WE CAN ACCOMMODATE HIM, BUT PT STILL REFUSING. HE DOES NOT WANT TO GO ANYWHERE WITHOUT HIS CAR.
--- NOTE | 2018-12-13 23:30 | NUR ---
MS/RN NOTES NURSING TABLE WORKER PACKAGER JERICA CAME TO SPEAK TO THE PT. PT STILL REFUSING TO LEAVE VIA AMBULANCE TO SNF. WE ARE UNABLE TO SAFELY DISCHARGE PT WITH HOMELESS WAIVER FORM BECAUSE THERE IS NO ARRANGEMENT FOR HD CENTER NOTED IN THE TOOL MAINTENANCE TECHNICIAN NOTES. JERICA SPOKE TO TOBY MARTINEZ, AND MADE AWARE OF THE SITUATION. PT WILL STAY THE NIGHT AND CM WILL FOLLOW UP REGARDING HIS DISCHARGE PLAN. PT AWARE AND VERBALIZED UNDERSTANDING.
--- NOTE | 2018-12-13 23:30 | NUR ---
MS/RN NOTES PT BGL 159. REFUSING SNACKS AND DOES NOT WANT INSULIN TONIGHT. NON ADMINISTERED INSULIN PER SLIDING SCALE.
[2018-12-14] MEDS: VANCOMYCIN 500 MG in IV D5W 100 ML IV PRN (00:24)
[2018-12-14] MEDS ORDERED: PIPERACILLIN /TAZOBACTAM 2.25 G VIAL IV ONE (00:29)
[2018-12-14] MEDS: PIPERACILLIN /TAZOBACTAM 2.25 G in IV D5W 50 ML IV SCH ×2 (00:58→08:45)
[2018-12-14] MEDS: BLOOD SUGAR DIAGNOSTIC 1 EACH STRIP IN SCH (06:54)
[2018-12-14] MEDS: INSULIN REGULAR, HUMAN 100 UNIT/ML 3 ML VIAL SQ PRN (06:56)
--- NOTE | 2018-12-14 07:30 | NUR ---
MS/RN CLOSING NOTES PT RECEIVED AWAKE, SITTING AT THE EDGE OF THE BED. A/OX3 AND ABLE TO MAKE HIS NEEDS KNOWN. ON ROOM AIR, BREATHING EVEN AND UNLABORED. IV TO RIGHT WRIST PATENT AND INTACT. CHRISTIAN AV SHUNT WITH +BRUITT/THRILL, NO BLEEDING NOTED. NO NEEDS EXPRESSED AT THIS TIME. NO SIGNIFICANT CHANGES OVERNIGHT. BED IN LOW/LOCKED POSITION WITH CALL LIGHT IN REACH, HOB ELEVATED, BILAT. UPPER SIDE RAILS IN PLACE. ENDORSED TO DAY SHIFT RN BARBIE.
--- NOTE | 2018-12-14 07:41 | NUR ---
MS/RN OPENING NOTE PATIENT IN BED IN STABLE CONDITION. A/O X 3. NO SIGNS OF ACUTE DISTRESS. NO COMPLAIN OF PAIN OR DISCOMFORT. ALL NEEDS ATTENDED TO. CALL LIGHT WITHIN REACH. WILL CONTINUE TO MONITOR TO ENSURE SAFETY.
[2018-12-14 08:00] VITALS: BP 131/69
[2018-12-14] MEDS: AMLODIPINE BESYLATE 5 MG TABLET PO SCH (08:46)
--- NOTE | 2018-12-14 10:05 | NUR ---
SW was informed by keycase assembler Clau that pt. is wanting to go AMA. Pt. was accepted at [facility], however he prefers to live in his care and declined [facility] and all homeless resources. Pt. is ambulatory. Homeless Patient Waiver was signed by the pt. and placed in pt's chart.
--- NOTE | 2018-12-14 10:14 | NUR ---
MS/RN PATIENT LEFT AMA. EXPLAINED TO PATIENT CURRENTLY HE IS ACCEPTED AT [facility], PER PATIENT, HE DOESN'T WANT TO GO THERE, HE LIVES IN HIS CAR AND WANTS TO STAY IN HIS CAR AND FEEL FINE TO GO BACK. AYDEE STOCKROOM COORDINATOR AT BEDSIDE, PATIENT STILL CONTINUE TO REFUSE. SUPERINTENDENT MENAGERIE RAJINDER MADE AWARE. NAME BAND AND IV LINE REMOVED, HOMELESS WAIVER AND AMA FORM SIGNED BY PATIENT. ALSO VERIFY PATIENT HEMODIALYSIS ARRANGEMENT PER PATIENT HE CURRENTLY GOES TO [facility]. LEFT IN STABLE CONDITION.
== END 2018-12-14 10:11 | disposition left against medical advice (07) | DRG 570 ==
LOC: ER 15:50 → MED 17:48 → TELE 19:48 → MED 12-08 08:40 → MEDSG2 12-11 21:31
PROVIDERS: ADMIT Student in an Organized Health Care Education/Training Program; ATTEND Student in an Organized Health Care Education/Training Program
PROC: 0JBR0ZZ Excision of Left Foot Subcutaneous Tissue and Fascia, Open Approach (ICD-10-PCS; principal; 2018-12-07)
PROC: 0JBQ0ZZ Excision of Right Foot Subcutaneous Tissue and Fascia, Open Approach (ICD-10-PCS; 2018-12-07)
PROC: 0JCQ0ZZ Extirpation of Matter from Right Foot Subcutaneous Tissue and Fascia, Open Approach (ICD-10-PCS; 2018-12-07)
PROC: 5A1D70Z Performance of Urinary Filtration, Intermittent, Less than 6 Hours Per Day (ICD-10-PCS; 2018-12-09)
PROC: 5A1D70Z Performance of Urinary Filtration, Intermittent, Less than 6 Hours Per Day (ICD-10-PCS; 2018-12-11)
PROC: 30233P1 Transfusion of Nonautologous Frozen Red Cells into Peripheral Vein, Percutaneous Approach (ICD-10-PCS; 2018-12-11)
PROC: 5A1D70Z Performance of Urinary Filtration, Intermittent, Less than 6 Hours Per Day (ICD-10-PCS; 2018-12-13)
DX: L03.115 Cellulitis of right lower limb (principal); N18.6 End stage renal disease; I12.0 Hypertensive chronic kidney disease with stage 5 chronic kidney disease or end stage renal disease; E87.1 Hypo-osmolality and hyponatremia; E44.1 Mild protein-calorie malnutrition; L03.116 Cellulitis of left lower limb; E11.22 Type 2 diabetes mellitus with diabetic chronic kidney disease; E11.621 Type 2 diabetes mellitus with foot ulcer; Z59.0 Homelessness; E11.42 Type 2 diabetes mellitus with diabetic polyneuropathy; E87.6 Hypokalemia; R13.10 Dysphagia, unspecified; Z99.2 Dependence on renal dialysis; E78.5 Hyperlipidemia, unspecified; Z93.1 Gastrostomy status; Z85.21 Personal history of malignant neoplasm of larynx; D53.9 Nutritional anemia, unspecified; D63.8 Anemia in other chronic diseases classified elsewhere; Z68.22 Body mass index [BMI] 22.0-22.9, adult; I25.10 Atherosclerotic heart disease of native coronary artery without angina pectoris; L97.529 Non-pressure chronic ulcer of other part of left foot with unspecified severity; L97.519 Non-pressure chronic ulcer of other part of right foot with unspecified severity; S90.851A Superficial foreign body, right foot, initial encounter; X58.XXXA Exposure to other specified factors, initial encounter; Y92.89 Other specified places as the place of occurrence of the external cause
CPT/HCPCS: 36415; 71045-TC; 80048-TC; 80061-TC; 80076-TC; 80202-TC; 82962-TC; 83605-TC; 83735-TC; 84100-TC; 84484-TC; 85025-TC; 85730-TC; 86706; 86850-TC; 86921-TC; 87040-TC; 87081-TC; 87340; 90935-TC; 97116-TC; 97530-TC; 97535-TC; A6403; G0378; J0885; J1815; J2543; J3370; J7050; J7060; P9016-BL

== ENCOUNTER 2018-12-20 15:33 | Emergency (ER) | payer MEDICARE, MEDICAID ==
[~2018-12-20] VITALS: Ht 170.2 cm; Wt 66.2 kg
[~2018-12-20 15:33] MED LIST changes: -*INS REG3 IJ; -ALBU1.25 NEB; -AMLO10TA4 PO; +AMLO5TAB9 PO; +CLIN300C11 PO; -ENAL20TA PO; +HYDR-4076 PO; +INSU100V28 SQ; -INSU3INS6 SUBCUT; -IPRA0.2S49 IH; -OMEP20CA11 PO; -ONDA4TAB5 PO
[2018-12-20] MEDS ORDERED: ONDANSETRON HCL/PF 4 MG/2 ML VIAL ONE (15:47)
--- NOTE | 2018-12-20 15:50 | NUR ---
PT BIB RA FROM HD CENTER. PT HAD [facility] DIALYSIS AND FELT TOO WEAK TO DRIVE HOME. HD CENTER CALLED 911 FOR THE PT. PT ARRIVED IN A WHEELCHAIR AND VOMITTED IN TRIAGE. PT WENT TO ER BED #13 AND WAS CONNECTED TO THE MONITOR AND CONTINUOUS PULSE OX. MOIRA, SHEET METAL ROOFER IS AT THE BEDSIDE DRAWING BLOOD.
--- NOTE | 2018-12-20 15:56 | NUR ---
20G IV STARTED ON RAC.
[2018-12-20] MEDS: IV NS 0.9% 500 ML BAG IV ONE (15:58)
[2018-12-20] MEDS: ONDANSETRON HCL/PF 4 MG/2 ML VIAL IV ONE (15:59)
[2018-12-20 16:02] LABS: BASOPHILS # (AUTO) 0.1 /CMM (0.0-0.2); EOSINOPHILS % (AUTO) 1.1 % (0.0-6.0); HEMATOCRIT 23 % (39-51); HEMOGLOBIN 7.7 g/dL (13.5-17.5); LYMPHOCYTES # (AUTO) 0.9 /CMM (0.8-4.8); LYMPHOCYTES % (AUTO) 9.3 % (20.0-44.0); MEAN CORPUSCULAR HGB CONC 33 g/dl (31.0-36.0); MEAN CORPUSCULAR VOLUME 105 fL (80-96); MONOCYTES # (AUTO) 0.4 /CMM (0.1-1.30); MONOCYTES % (AUTO) 4.3 % (2.0-12.0); NEUTROPHILS # (AUTO) 8.1 /CMM (1.8-8.9); NEUTROPHILS % (AUTO) 84.3 % (43.0-81.0); PLATELET COUNT (AUTO) 398 /CMM (150-450); RED BLOOD CELL COUNT(AUTO) 2.21 MIL/uL (4.5-6.0); WHITE BLOOD COUNT (AUTO) 9.7 K/uL (4.3-11.0)
[2018-12-20 16:12] LABS: CALCIUM, SERUM 7.9 mg/dL (8.5-10.1); CARBON DIOXIDE 36 mmol/L (21-32); CHLORIDE 95 mmol/L (98-107); CREATININE 4.4 mg/dL (0.6-1.3); GLUCOSE 189 mg/dL (74-106); POTASSIUM 3.4 mmol/L (3.5-5.1); SODIUM SERUM 138 mmol/L (136-145); UREA NITROGEN, BLOOD 20 mg/dL (7-18)
[2018-12-20 16:19] LABS: ALANINE AMINOTRANSFERASE 19 U/L (12-78); ALBUMIN 2.7 g/dL (3.4-5.0); ALKALINE PHOSPHATASE 61 U/L (46-116); ASPARTATE AMINOTRANSFERASE 19 U/L (15-37); BILIRUBIN,TOTAL 0.2 mg/dL (0.2-1.0); TOTAL PROTEIN, SERUM 7.1 g/dL (6.4-8.2)
--- NOTE | 2018-12-20 16:27 | NUR ---
PT APPEARS TO BE RESTING COMFORTABLY. PT NODDED YES WHEN ASKED IF HE WAS FEELING BETTER. PT ALSO NODDED NO WHEN ASKED IF HE STILL FELT WEAK. PT IS ON THE MONITOR AND CONINTUOUS PULSE OX.
--- NOTE | 2018-12-20 16:59 | NUR ---
PT'S O2 SAT DECREASED TO 90% ON RA WHILE HE WAS SLEEPING. PT WAS PLACED ON 2L O2 VIA NC PRECAUTION. PT DOES NOT NORMALLY USE O2 AT HOME.
--- NOTE | 2018-12-20 17:50 | NUR ---
PT WAS TAKEN OFF 2L O2 AND IS SATURATING AT 94% ON RA.
--- NOTE | 2018-12-20 17:56 | NUR ---
IV removed. Catheter intact and site benign. Pressure and 4x4 applied to site. No bleeding noted. PT'S FEET ARE BEING WRAPPED WITH XEROFORM AND KERLEX. (PT'S BANDAGES WERE REMOVED BY DR. TATUM). Patient discharged to home in stable condition. Written and verbal after care instructions given. Patient verbalizes understanding of instruction AND RX. PT STATED THAT HE IS DRIVING HOME AND FEELS COMFORTABLE WITH DRIVING HOME. DR. TATUM IS AWARE. VSS.
[2018-12-20 18:02] VITALS: BP 179/85
== END 2018-12-20 18:03 | disposition home or self-care (01) ==
LOC: ER 15:39
DX: E86.1 Hypovolemia (principal); R11.2 Nausea with vomiting, unspecified; R10.84 Generalized abdominal pain; E11.22 Type 2 diabetes mellitus with diabetic chronic kidney disease; I12.0 Hypertensive chronic kidney disease with stage 5 chronic kidney disease or end stage renal disease; N18.6 End stage renal disease; D53.9 Nutritional anemia, unspecified; E87.6 Hypokalemia; E87.3 Alkalosis; E88.09 Other disorders of plasma-protein metabolism, not elsewhere classified; Z99.2 Dependence on renal dialysis; Z93.1 Gastrostomy status; Z85.21 Personal history of malignant neoplasm of larynx; Z79.4 Long term (current) use of insulin; Z79.899 Other long term (current) drug therapy
CPT/HCPCS: 36415; 71045; 80048; 80076; 82962; 84484; 85025; 85730; 86850; 93005; 96374; 99284; J2405; J7040